=== PATIENT | male | born 1950 | race Caucasian/White ===

== ENCOUNTER 2017-07-02 08:00 | Outpatient (CLI) | payer MEDICARE, MEDICAID ==
[2017-07-02 12:52] LABS: PSA FREE 0.1 ng/mL (0.16-2.81)
[2017-07-02 12:53] LABS: PSA TOTAL 2.71 ng/mL (0.000-2.000)
== END 2017-07-02 08:01 | disposition home or self-care (01) ==
LOC: LAB.N 08:00
PROVIDERS: ATTEND Nurse Practitioner Gerontology
DX: Z85.46 Personal history of malignant neoplasm of prostate (principal)
CPT/HCPCS: 36415; 84154

== ENCOUNTER 2017-09-26 07:08 | Day surgery (SDC) | payer MEDICARE, MEDICAID ==
[~2017-09-26 07:08] MED LIST: BRIMONIDINE 0.2% OPHTH DROPS 5 ML ONE; PROPARACAINE 0.5% OPHTH DROPS 15 ML ONE; TIMOLOL 0.5% OPHTH DROPS ONE
[2017-09-26] MEDS ORDERED: KETOROLAC 0.45% OPHTH DROPS ONE (07:24)
[2017-09-26] MEDS ORDERED: PROPARACAINE 0.5% OPHTH DROPS 15 ML ONE (07:24)
[2017-09-26] MEDS ORDERED: PHENYLEPHRINE 2.5% OPHTH 2 ML DROPS ONE (07:24)
[2017-09-26] MEDS ORDERED: CYCLOPENTOLATE 1% OPHTH DROPS 2 ML ONE (07:24)
[2017-09-26] MEDS ORDERED: PHENYLEPHRINE 2.5% OPHTH 2 ML DROPS RIGHTEYE ONE (07:30)
[2017-09-26] MEDS ORDERED: CYCLOPENTOLATE 1% OPHTH DROPS 2 ML RIGHTEYE ONE (07:30)
[2017-09-26] MEDS ORDERED: LACTATED RINGERS 1,000 ML IV ONE (07:44)
[2017-09-26] MEDS ORDERED: EPINEPHrine 1 MG/ML AMP IVP ONE (08:46)
[2017-09-26] MEDS ORDERED: BRIMONIDINE 0.2% OPHTH DROPS 5 ML OPTH ONE (08:46)
[2017-09-26] MEDS ORDERED: CHONDR SULF/HYALURONATE SYRINGE IO ONE (08:46)
[2017-09-26] MEDS ORDERED: PROPARACAINE 0.5% OPHTH DROPS 15 ML RIGHTEYE ONE (08:47)
[2017-09-26] MEDS ORDERED: BSS/LIDOCAINE/EPINEPHRINE 1 ML SYRINGE IO ONE ×2 (08:47)
[2017-09-26] MEDS ORDERED: TIMOLOL 0.5% OPHTH DROPS OPTH ONE (08:47)
[2017-09-26] MEDS ORDERED: TRIAMCIN/MOXIFLOX/VANCO 1 ML VIAL IO ONE (08:47)
[2017-09-26] MEDS ORDERED: MIDAZOLAM 2 MG/2 ML VIAL IVP ONE (08:54)
[2017-09-26 09:19] VITALS: BP 141/91
--- NOTE | 2017-09-26 09:38 | OPERATIVE REPORT ---
DATE OF SERVICE: 09/26/2017 Physician: Albert Spears MD PREOPERATIVE DIAGNOSIS: Visually significant cataract, right eye. This was his first cataract surgery. POSTOPERATIVE DIAGNOSIS: Visually significant cataract, right eye. This was his first cataract surgery. NAME OF PROCEDURE: Phacoemulsification of posterior chamber intraocular lens with lens implant, right eye. SURGEON: Albert Spears MD ANESTHESIA: Monitored anesthesia care. COMPLICATIONS: None. OPERATIVE INDICATIONS: This is a 66-year-old man with progressive vision loss in the right eye due to 2+ nuclear sclerotic cataract. Best corrected visual acuity was 20/25 with glare to 20/100 in the right eye. Indications for surgery were difficulty seeing words, closed captions or games scores on TV; difficulty seeing street signs, difficulty driving in low light or at night, difficulty driving at night because of headlights from other vehicles, and difficulty with glare or bright lights in any situation. He was consented at length concerning the risks and benefits of cataract surgery, after which he expressed a desire to proceed with surgery. OPERATIVE PROCEDURE: The patient was taken to OR #3 and placed under monitored anesthesia care. A surgical timeout was conducted confirming correct patient, correct procedure, and correct surgical site. He was given topical anesthesia, and prepped and draped in the usual sterile fashion. The eye was entered at the 12 and 9 o'clock positions. Intracameral Shugarcaine was injected into the anterior chamber, followed by Viscoat. A continuous-tear curvilinear capsulorrhexis was performed. The nucleus was hydrodissected and phacoemulsified. The cortex was evacuated using automated infusion and aspiration. Provisc was injected in the capsular bag, and a 14.5 diopter intraocular lens inserted into the bag. Approximately 0.8 mL of a mixture of triamcinolone and moxifloxacin was injected subconjunctivally in the superior quadrant for infection and inflammation prophylaxis. I and A was used to evacuate the viscoelastic materials. The eye was inflated to physiologic pressure using a balanced salt solution and found to be watertight. The patient was taken from the operating room in good condition and given postop instructions. TD: 09/26/2017 09:37
== END 2017-09-26 07:09 | disposition home or self-care (01) ==
LOC: SDS 07:08
PROVIDERS: ATTEND Ophthalmology
PROC: 08RJ3JZ Replacement of Right Lens with Synthetic Substitute, Percutaneous Approach (ICD-10-PCS; principal; 2017-09-26 08:30)
DX: H25.11 Age-related nuclear cataract, right eye (principal); I10 Essential (primary) hypertension; Z85.46 Personal history of malignant neoplasm of prostate; Z90.79 Acquired absence of other genital organ(s)
CPT/HCPCS: 66984; A9270; J3490; J7120; V2632

== ENCOUNTER 2017-10-31 07:52 | Day surgery (SDC) | payer MEDICARE, MEDICAID ==
[2017-10-31] MEDS ORDERED: KETOROLAC 0.45% OPHTH DROPS ONE (08:14)
[2017-10-31] MEDS ORDERED: CYCLOPENTOLATE 1% OPHTH DROPS 2 ML ONE (08:15)
[2017-10-31] MEDS ORDERED: PHENYLEPHRINE 2.5% OPHTH 2 ML DROPS ONE (08:15)
[2017-10-31] MEDS ORDERED: PROPARACAINE 0.5% OPHTH DROPS 15 ML ONE (08:15)
[2017-10-31] MEDS ORDERED: LACTATED RINGERS 500 ML IV ONE (08:20)
[2017-10-31] MEDS ORDERED: EPINEPHrine 1 MG/ML AMP IVP ONE (09:16)
[2017-10-31] MEDS ORDERED: BRIMONIDINE 0.2% OPHTH DROPS 5 ML OPTH ONE (09:16)
[2017-10-31] MEDS ORDERED: MIDAZOLAM 2 MG/2 ML VIAL IVP ONE (09:16)
[2017-10-31] MEDS ORDERED: CHONDR SULF/HYALURONATE SYRINGE IO ONE (09:16)
[2017-10-31] MEDS ORDERED: BSS/LIDOCAINE/EPINEPHRINE 1 ML SYRINGE IO ONE (09:17)
[2017-10-31] MEDS ORDERED: TRIAMCIN/MOXIFLOX/VANCO 1 ML VIAL IO ONE (09:17)
[2017-10-31] MEDS ORDERED: TIMOLOL 0.5% OPHTH DROPS OPTH ONE (09:17)
[2017-10-31] MEDS ORDERED: PROPARACAINE 0.5% OPHTH DROPS 15 ML LEFTEYE ONE (09:18)
[2017-10-31 09:51] VITALS: BP 150/87
== END 2017-10-31 07:53 | disposition home or self-care (01) ==
LOC: SDS 07:52
PROVIDERS: ATTEND Ophthalmology
PROC: 08RK3JZ Replacement of Left Lens with Synthetic Substitute, Percutaneous Approach (ICD-10-PCS; principal; 2017-10-31 09:00)
DX: H25.12 Age-related nuclear cataract, left eye (principal); I10 Essential (primary) hypertension; Z79.82 Long term (current) use of aspirin; R12 Heartburn
CPT/HCPCS: 66984; A9270; J3490; V2632

== ENCOUNTER 2018-07-28 07:17 | Outpatient (CLI) | payer MEDICARE ==
--- NOTE | 2018-07-28 10:46 | Ultrasound Report ---
Reason: RUQ PAIN, EPIGASTRIC PAIN Procedure Date: 07/28/2018 Accession Number: [id number] / [id number] Procedure: US - Abdomen Complete CPT Code: FULL RESULT: EXAM: ABDOMEN ULTRASOUND EXAM DATE: 07/28/2018 09:22 AM. CLINICAL HISTORY: Right upper quadrant pain, epigastric pain. COMPARISON: None. TECHNIQUE: Real-time scanning was performed with static images obtained. FINDINGS: Liver: Echotexture is slightly coarse with mildly increased echogenicity. There is a simple cyst in the left lobe of the liver which measures up to 1.5 cm and the right lobe of the liver measures up to 15.7 cm. Main portal vein flow: Hepatopetal. Gallbladder: Normal. No stones, wall thickening, or sonographic Stuart's sign. Biliary System: Common bile duct measures 3 mm. No intrahepatic or extrahepatic ductal dilatation. Pancreas: Visualized portion is unremarkable. Kidneys: Right: 10.2 cm longitudinally. Normal. No contour-deforming mass, stones, or hydronephrosis. Left: 9.4 cm longitudinally. Normal. No contour-deforming mass, stones, or hydronephrosis. Spleen: 7.7 cm. Echotexture of the spleen is heterogeneous with multiple hyperechoic foci within, nonspecific finding possibly related to prior granulomatous disease. Aorta and Inferior Vena Cava: Unremarkable. Other: None. IMPRESSION: Increased echogenicity and coarseness of liver parenchyma which can be seen with hepatic steatosis. Heterogeneous splenic echotexture with multiple hyperechoic foci, nonspecific finding, possibly prior granulomatous disease. RADIA
== END 2018-07-28 07:18 | disposition home or self-care (01) ==
LOC: DI 07:17
PROVIDERS: ATTEND Family Medicine
DX: R10.11 Right upper quadrant pain (principal); R10.13 Epigastric pain
CPT/HCPCS: 76700

== ENCOUNTER 2018-08-11 10:42 | Emergency (ER) | payer MEDICARE ==
[2018-08-11] MEDS ORDERED: SODIUM CHLORIDE 0.9% 1,000 ML IV ONE (13:02)
[2018-08-11] MEDS ORDERED: ACETAMINOPHEN 325 MG TABLET PO STA (13:02)
--- NOTE | 2018-08-11 13:03 | ED Physician Documentation ---
History of Present Illness - Stated complaint Stated Complaint: SOA,DEHYDATED,VOMITING - Chief complaint Chief Complaint: General - History obtained from History obtained from: Patient, Friend - History of Present Illness Timing: Other (This is a 67-year-old gentleman with history of prostate cancer who has been sick for 6 days with vomiting and diarrhea and chills and fevers. He had one good day 3 days ago where he felt great, other than that it has been coming out of both ends and he has had chills and fevers. Actually today the vomiting and diarrhea is better. He has not had much of an appetite. He denies abdominal pain, cough. He does have urinary burning.) Review of Systems Ten Systems: 10 systems reviewed and negative Constitutional: reports: Fever, Chills, Fatigue Nose: denies: Rhinorrhea / runny nose, Congestion Cardiac: denies: Chest pain / pressure, Palpitations Respiratory: denies: Dyspnea, Cough GI: reports: Nausea, Vomiting, Diarrhea. denies: Abdominal Pain, Hematemesis, Bloody / black stool PD PAST MEDICAL HISTORY - Past Medical History Cardiovascular: Hypertension Respiratory: None Endocrine/Autoimmune: None GI: GERD : Other HEENT: Chronic vision loss, Chronic sinusitis Psych: None Musculoskeletal: Osteoarthritis Derm: None - Past Surgical History General: Other Ortho: Other HEENT: Cataracts, Tonsil/Adenoidectomy, Other - Present Medications Home Medications: Ambulatory Orders Medication Instructions Recorded Confirmed Aspirin 81 mg PO DAILY 09/26/17 10/31/17 Atenolol 50 mg PO BID 09/26/17 10/31/17 raNITIdine [Zantac] 150 mg PO DAILY 09/26/17 10/31/17 Cetirizine [ZyrTEC] 10 mg PO DAILY PRN 10/30/17 10/31/17 Ciprofloxacin HCl [Cipro] 500 mg PO BID #20 tablet 08/11/18 Loperamide [Imodium] 2 mg PO QID PRN #10 capsule 08/11/18 Promethazine [Phenergan] 25 mg PO Q6H PRN #10 tab 08/11/18 - Allergies Allergies/Adverse Reactions: Allergies Allergy/AdvReac Type Severity Reaction Status Date / Time No Known Drug Allergies Allergy Verified 08/11/18 10:58 PD ED PE NORMAL - Vitals Vital signs reviewed: Yes - General General: Alert and oriented X 3, No acute distress - HEENT HEENT: Moist mucous membranes, Pharynx benign - Neck Neck: Supple, no meningeal sign, No bony TTP - Cardiac Cardiac: RRR, No murmur - Respiratory Respiratory: No respiratory distress, Clear bilaterally - Abdomen Abdomen: Normal bowel sounds, Soft, Non tender - Back Back: No CVA TTP, No spinal TTP - Derm Derm: No rash - Neuro Neuro: Alert and oriented X 3, Normal speech Results - Vitals Vitals: Vital Signs - 24 hr 08/11/18 08/11/18 08/11/18 10:52 13:04 14:01 Temperature 36.3 C L Heart Rate 107 H 91 82 Respiratory 16 18 16 Rate Blood Pressure 118/87 H 151/98 H 141/90 H O2 Saturation 98 98 100 Oxygen O2 Source Room air - Labs Labs: Laboratory Tests 08/11/18 08/11/18 08/11/18 11:03 13:20 13:20 WBC 11.7 H RBC 4.64 L Hgb 14.6 Hct 43.5 MCV 93.7 MCH 31.5 H MCHC 33.6 RDW 13.4 Plt Count 278 MPV 8.0 Neut # (Auto) 9.3 H Lymph # (Auto) 0.7 L [place] # (Auto) 1.7 H Eos # (Auto) 0.0 Baso # (Auto) 0.1 Absolute Nucleated RBC 0.02 Nucleated RBC % 0.2 Manual Slide Review Indicated WBC Morphology NORMAL APPEARANCE Platelet Estimate NORMAL (130-450,000) Platelet Morphology NORMAL APPEARANCE RBC Morph Micro Appear NORMAL APPEARANCE Sodium 136 Potassium 2.9 L Chloride 99 L Carbon Dioxide 23 Anion Gap 14.0 H BUN 23 H Creatinine 1.2 Estimated GFR (MDRD) 60 L Glucose 104 H Calcium 9.2 Total Bilirubin 1.0 AST 46 H ALT 65 H Alkaline Phosphatase 104 Total Protein 8.3 H Albumin 3.8 Globulin 4.5 H Albumin/Globulin Ratio 0.8 L Lipase 35 Urine Color Urine Clarity Urine pH Ur Specific [place] Urine Protein Urine Glucose (UA) Urine Ketones Urine Occult Blood Urine Nitrite Urine Bilirubin Urine Urobilinogen Ur Leukocyte Esterase Urine RBC Urine WBC Ur Squamous Epith Cells Urine Bacteria Ur Microscopic Review Urine Culture Comments Influenza A (Rapid) Negative Influenza B (Rapid) Negative 08/11/18 14:55 WBC RBC Hgb Hct MCV MCH MCHC RDW Plt Count MPV Neut # (Auto) Lymph # (Auto) [place] # (Auto) Eos # (Auto) Baso # (Auto) Absolute Nucleated RBC Nucleated RBC % Manual Slide Review WBC Morphology Platelet Estimate Platelet Morphology RBC Morph Micro Appear Sodium Potassium Chloride Carbon Dioxide Anion Gap BUN Creatinine Estimated GFR (MDRD) Glucose Calcium Total Bilirubin AST ALT Alkaline Phosphatase Total Protein Albumin Globulin Albumin/Globulin Ratio Lipase Urine Color YELLOW Urine Clarity CLOUDY Urine pH 6.0 Ur Specific [place] 1.015 Urine Protein TRACE Urine Glucose (UA) NEGATIVE Urine Ketones NEGATIVE Urine Occult Blood NEGATIVE Urine Nitrite NEGATIVE Urine Bilirubin NEGATIVE Urine Urobilinogen 0.2 (NORMAL) Ur Leukocyte Esterase TRACE H Urine RBC 0-5 Urine WBC 11-25 H Ur Squamous Epith Cells FEW Squamous Urine Bacteria Many H Ur Microscopic Review INDICATED Urine Culture Comments INDICATED Influenza A (Rapid) Influenza B (Rapid) PD MEDICAL DECISION MAKING - ED course ED course: 67-year-old gentleman with nonspecific illness with chills and fatigue of weeks duration but he does have urinary dysuria and vomiting and diarrhea although that has improved. Found to have a UTI with dehydration, modest hypokalemia. He appears well and took oral fluids well here. And merits a trial of outpatient therapy. Departure - Departure Disposition: Home, Self Care Clinical Impression: Dehydration UTI (urinary tract infection) Qualifiers: Urinary tract infection type: site unspecified Hematuria presence: without hematuria Qualified Code(s): N39.0 - Urinary tract infection, site not specified Condition: Good Record reviewed to determine appropriate education?: Yes Instructions: ED UTI Cystitis Male Prescriptions: Ciprofloxacin HCl [Cipro] 500 mg PO BID #20 tablet Loperamide [Imodium] 2 mg PO QID PRN #10 capsule PRN Reason: Diarrhea Promethazine [Phenergan] 25 mg PO Q6H PRN #10 tab PRN Reason: Nausea / Vomiting Comments: We will culture your urine, the results should be done in 48-72 hours. If an antibiotic change is necessary we will call you. Return if worse in the meant anthony, especially if you develop increasing flank pain, fevers, or cannot keep down the medication. Your blood pressure was elevated today on check into the emergency department. This does not mean that you have hypertension, it is a common phenomenon to come to the emergency department and have elevated blood pressure. I recommend that you see your primary care physician within the week to have it rechecked when you are feeling better. Call your doctor to arrange a follow-up appointment, make the next available appointment. In the interim, return anytime if worse or if new symptoms develop .
[2018-08-11 13:34] LABS: BASOPHILS # (AUTO) 0.1 10^3/uL (0.0-0.1); BASOPHILS % (AUTO) 0.9 %; EOSINOPHILS % (AUTO) 0.2 %; HGB - HEMOGLOBIN 14.6 g/dL (14.0-18.0); LYMPHOCYTES # (AUTO) 0.7 10^3/uL (1.5-3.5); LYMPHOCYTES % (AUTO) 5.7 %; MEAN CORPUSCULAR HEMOGLOBIN 31.5 pg (27.0-31.0); MEAN CORPUSCULAR HGB CONC 33.6 g/dL (32.0-36.0); MEAN CORPUSCULAR VOLUME 93.7 fL (80.0-94.0); MONOCYTES # (AUTO) 1.7 10^3/uL (0.0-1.0); MONOCYTES % (AUTO) 14.3 %; NEUTROPHILS # (AUTO) 9.3 10^3/uL (1.5-6.6); NEUTROPHILS % (AUTO) 78.9 %; PLT - PLATELET COUNT 278 10^3/uL (130-450); RED BLOOD COUNT 4.64 10^6/uL (4.70-6.10); RED CELL DISTRIBUTION WIDTH 13.4 % (12.0-15.0); WHITE BLOOD COUNT 11.7 x10^3/uL (4.8-10.8)
[2018-08-11 13:40] LABS: ALBUMIN 3.8 g/dL (3.2-5.5); ALBUMIN/GLOBULIN RATIO 0.8 (1.0-2.2); CREATININE 1.2 mg/dL (0.6-1.2); TOTAL PROTEIN 8.3 g/dL (6.7-8.2)
[2018-08-11 13:45] LABS: CALCIUM 9.2 mg/dL (8.5-10.3)
[2018-08-11] MEDS ORDERED: POTASSIUM BICARB 25 MEQ TABLET PO STA (13:55)
[2018-08-11 14:33] LABS: PLATELET ESTIMATE, MANUAL NORMAL (130-450,000) (NORMAL); PLATELET MORPHOLOGY NORMAL APPEARANCE (NORMAL); RBC MORPHOLOGY (MULTIPLE) NORMAL APPEARANCE (NORMAL)
[2018-08-11 15:22] LABS: BILIRUBIN,URINE NEGATIVE (NEGATIVE); GLUCOSE, URINE (UA) NEGATIVE (NEGATIVE); KETONES,URINE (UA) NEGATIVE (NEGATIVE); LEUKOCYTE ESTERASE, URINE TRACE (NEGATIVE); NITRITE,URINE NEGATIVE (NEGATIVE); OCCULT BLOOD,URINE NEGATIVE (NEGATIVE); PROTEIN,URINE TRACE mg/dL (NEGATIVE); UROBILINOGEN,URINE 0.2 (NORMAL) E.U./dL (NORMAL)
[2018-08-11 15:38] LABS: BACTERIA,URINE Many /HPF (None Seen); CLARITY,URINE CLOUDY (CLEAR); RBC,URINE 0-5 /HPF (0-5); SQUAMOUS EPITHELIAL CELL,UR FEW Squamous (<= Few)
[2018-08-11] MEDS ORDERED: CIPROFLOXACIN 250 MG TABLET PO STA (15:42)
[2018-08-11 15:52] VITALS: BP 127/91
== END 2018-08-11 16:01 | disposition home or self-care (01) ==
LOC: ED 10:42
DX: E86.0 Dehydration (principal); E87.6 Hypokalemia; N39.0 Urinary tract infection, site not specified; I10 Essential (primary) hypertension; Z85.46 Personal history of malignant neoplasm of prostate; Z79.82 Long term (current) use of aspirin
CPT/HCPCS: 36415; 80053; 81001; 83690; 85025; 87077; 87086; 87181; 87275; 87276; 96360; 99283; 99284; A9270; 81003